=== PATIENT | male | born 1980 | race Caucasian/White ===

== ENCOUNTER 2021-11-05 00:55 | Day surgery (SDC) | payer BC, SELFPAY ==
--- NOTE | 2021-11-02 17:39 | SUR.PREOP ---
Report to the Outpatient Waiting Room, entrance under the green pavilion located off [facility], at time 1000 on date 11/05/21. OR Time: 1200. - You and your visitor will be asked a series of questions to screen for COVID 19 for your protection. - Only one visitor is allowed at this time. - The patient visitor is requested to leave or wait in car when not with patient. - A mask is required within the hospital. Patients may have clear liquids (water, carbonated beverages, clear teas, apple juice) until 3 hours prior to surgery with a maximum of 20 ounces. - NO CLEAR LIQUIDS AFTER 0900 - No food from midnight until time of surgery - Infants may have breast milk until 4 hours before surgery, infant formula 6 hours prior to surgery. - Children will be allowed to drink immediately following surgery. If applicable, please bring a bottle or sippy cup to assist with drinking. Juice, water, soda, and popsicles are readily available. For infants on formula, please bring formula the day of surgery. Pacifiers are allowed. Please no make-up, nail malagasy, hairspray, perfume, deodorant, or body powder the day of surgery. No jewelry (including any body piercings) or valuables the day of surgery, leave them at home. Please take a shower or bath the night before, or the morning of, surgery with an antibacterial soap. Wear comfortable, loose fitting clothing. Children are encouraged to wear pajamas. - Jewelry must be removed prior to entering the operating room. Rings and piercings that are not removed may be cut off. - The hospital will not accept responsibility for valuables. - Please leave all valuables, including medications, at home the day of surgery. If you are going home after surgery, a licensed restaurant delivery driver must drive you home. - NO public transportation without another adult. - We recommend that an adult stay with you for 24 hours following discharge. - We also recommend that you do not drive, make important decision, drink alcoholic beverages, or take any drugs that were not prescribed by your health care provider for at least 24 hours after your discharge time. For Pediatric surgeries, we recommend two adults accompany the child home (only one inside the building at this time). Follow any additional instructions given to you from your surgeon. If you or anyone in your household have experienced Covid symptoms in the past week, please notify your surgeon or the nurse liaison at the phone number below for possible testing. Telephone instructions given to JOSÉ MIGUEL CHIANG and asked if any additional questions and then verbalized understanding. Patient advised to call surgeon office or pre surgery nurse liaison [phone] if any additional questions.
[2021-11-02 17:49] VITALS: BMI 27.0
[2021-11-05] VITALS (10 sets, daily range): BP systolic 115–140; BP diastolic 66–89; PULSE 55–80; RESP 12–16; TEMP 36.2; O2SAT 98–100; BMI 26.5
[2021-11-05] MEDS: KETOROLAC 15 MG/ML VIAL (*BKC) IV PUSH (10:45)
[2021-11-05] MEDS: LACTATED RINGERS 1,000 ML 30 ML IV CONT ×3 (10:45→17:12)
[2021-11-05] MEDS: ACETAMINOPHEN 500 MG TABLET 1000 MG PO (10:45)
--- NOTE | 2021-11-05 11:28 | WPDANESEPPF ---
Anes - Initial Pre Proc Eval Procedure: Operation Date: 11/05/21 12:00 Proposed Procedures p Robotic Assisted Right Inguinal Hernia Repair with Mesh - Geno Rdz MD Date/Time: 11/05/21 11:28 Surgeon: Geno Rdz MD Pre Op Diagnosis: Rt Ing Hernia Patient Data Age: 40 Gender: M Height: 1.88 m Weight: 93.7 kg Last Vital Signs Temp 97.1 F L 11/05/21 10:49 Pulse 76 11/05/21 10:49 Resp 14 11/05/21 10:49 BP 135/78 11/05/21 10:49 Pulse Ox 99 11/05/21 10:49 Allergies Allergy/AdvReac Type Severity Reaction Status Date / Time No Known Allergies Allergy Unverified 11/02/21 17:47 Home Medications Medication Instructions Recorded Confirmed Type acyclovir 400 mg tablet 400 mg PO DAILY 10/12/21 11/02/21 History Laboratory Tests 11/05/21 10:36 Blood Type AB Positive Antibody Screen Pending Patient hx anesthesia problems: none Family hx anesthesia problems: none Results Review: All pre-operative results and documents have been reviewed as part of the pre-operative evaluation. [facility] Surgical History Surgical History (Updated 10/12/21 @ 14:40 by Can Pepe MA) [place] teeth extracted Family History Family History (Updated 10/12/21 @ 14:41 by Can Pepe MA) Mother Cancer Father Cancer Social History Social History (Updated 10/12/21 @ 14:42 by Can Pepe MA) Smoking packs per day: 1 Smoking cigarettes per day: 20.0 Years smoked: 8 Smoking pack-years: 8.00 Smoking status: Former smoker Tobacco type: cigarettes Additional smoking assessment comments: FORMER SMOKER- 1 PACK DAILY FOR 8 YEARS Alcohol intake: current Substance use: never Substance use type: does not use Last use: 06/20/2003 Living arrangements: with family Additional occupation/education comments: RETURNED [employer] Spiritual care concerns: No Anes - Eval Final PreProcedure Day of Procedure 11/05/21 11:28 Patient weight: overweight Heart: regular rate and rhythm Lungs: clear to auscultation Airway: Mallampati scale class II Neurological: alert and oriented Last oral intake: >/= 8 hours ASA classification: II Emergent: no Anesthetic plan: proceed Anesthesia type and monitoring: general ETT and standard monitoring Results Review: All pre-operative results and documents have been reviewed as part of the pre-operative evaluation. Informed Consent: The patient's anesthetic plan and its attendant risks and benefits were discussed with the patient/family/POA. Questions were solicited and answers provided to the satisfaction of the patient/family/POA.
--- NOTE | 2021-11-05 11:58 | WPDHPUPDATE1 ---
History and Physical Update Update Date/Time: 11/05/21 11:58 History and Physical has been reviewed, including an updated exam of the patient. There are NO changes in the patient's condition. Risks, benefits, and alternatives have been discussed and questions answered. Patient agrees to proceed with procedure.
--- NOTE | 2021-11-05 12:44 | SUR.PREOP ---
pt updated about delay in or room.
[2021-11-05] MEDS: ceFAZolin 2 GM/D5W 50 ML 2 GM/50 ML BAG IVPB (13:35)
--- NOTE | 2021-11-05 15:05 | P.OP_ITS ---
Procedure Note - Detailed Date of Procedure 11/05/21 Pre-op Diagnosis right inguinal hernia Post-op Diagnosis Same Procedure Performed robotic assisted right inguinal hernia repair with mesh Surgeon Geno Rdz MD Anesthesia General Indications 40 y/o M presented to office c reducible [facility] Findings indirect right inguinal hernia Description of Procedure Patient was brought into the operating room and placed in the supine position. After adequate induction of general anesthesia, the patient was prepped and draped in normal sterile fashion. A time-out was then done to verify the patient's identity, as well as the procedure being performed. Began by making a 8 mm incision in the supraumbilical region, a Veress needle was then placed into the peritoneal cavity. CO2 gas was then insufflated and after adequate pneumoperitoneum was achieved, the Veress needle was removed. I then placed an 8 mm trocar through this incision. I then placed the endoscope through this trocar site and under direct visualization placed 2 further 8 mm ports in the right and left mid abdomen. The [employer] robot was then docked to the 3 trocar sites. I then scrubbed out and went to the robotic console. Upon examining the pelvis, it was noted that the patient had a moderate right inguinal hernia. The left side was examined and no hernia defect was noted. I began by making a preperitoneal flap approximately 6 cm superior to the defect. This flap was carried medially past the umbilical ligaments in laterally to the transversalis. I then began dissection of my medial compartment taking this down to the pubic tubercle. I then began the lateral dissection taking this down to the transversalis fascia. Once these compartments were achieved, I began dissection around the cord structures. A moderate indirect hernia was noted at this point. Using careful dissection, was able to reduce indirect hernia sac off the cord structures. Once this was adequately done, I went ahead and placed a large piece of 3D Max mesh into the abdominal cavity. The mesh was carefully positioned, centering the center of the mesh over the indirect defect. Once this was done, I was very satisfied with our mesh repair. Using 3-0 Vicryl sutures, I tacked the mesh medially to Quinn's ligament. Two lateral sutures were placed from the mesh to the transversalis fascia. I then closed the peritoneal flap with a running 2.0 V Lock suture. The abdomen was then desufflated, and all ports were removed. All incisions were then closed with the 4.0 monocryl suture. Dermabond was placed on each wound. The patient tolerated the procedure well, was extubated in the operating room postoperatively, and will now be transferred to the recovery room in stable condition. Implants large 3DMax mesh Estimated Blood Loss 10 Drains No Packing No Pathology None sent Complications No immediate complications Condition Stable Disposition PACU
[2021-11-05] MEDS: fentaNYL CITRATE INJ (*CRX) 100 MCG/2 ML VIAL 25 MCG IV PUSH ×3 (15:46→16:34)
[2021-11-05] MEDS: oxyCODONE HCL (*CRX) 5 MG TAB IR PO (16:33)
--- NOTE | 2021-11-05 17:15 | SUR.PHASEII ---
PT ATTEMPTED TO VOID WITH NO SUCCESS. PT GIVEN WATER. SODA, AND COFFEE. THIS NURSE ALSO STARTED A THIRD BAG OF LR.
--- NOTE | 2021-11-05 17:42 | SUR.PHASEII ---
PT MEETS DISCHARGE CRITERIA AND VOIDED. PT IS NOW WAITING FOR HIS RIDE WHICH LEFT TO GO CIGARETTE EXAMIN[employer] THE KIDS AND WILL BE HERE IN 30 MINUTES TO PICK PT UP.
== END 2021-11-05 18:31 | disposition home or self-care (01) ==
PROVIDERS: PCP Family Medicine; Visit Provider Surgery
PROC: 8E0Y4CZ Robotic Assisted Procedure of Lower Extremity, Percutaneous Endoscopic Approach (ICD-10-PCS; CPT 49650; principal; 2021-11-05 12:00)
DX: K40.90 Unilateral inguinal hernia, without obstruction or gangrene, not specified as recurrent (principal); Z87.891 Personal history of nicotine dependence
CPT/HCPCS: 49650; S2900; 36415; 86850; 86900; 86901; A9270; C1781; J0330; J0690; J1100; J1170; J1885; J2250; J2405; J2704; J2710; J3010; J7120